=== PATIENT | female | born 1950 | race Caucasian/White ===

== ENCOUNTER → 2020-09-09 | Outpatient (CLI) | payer MEDICARE ==
[~2020-09-09] MED LIST: DIATR MEGLU/DIATRIZOATE SODIUM 30 ML BOTTLE ONE; IOHEXOL-350 75 ML VIAL IV ONE
[2020-09-09 15:52] LABS: BASOPHILS % (AUTO) 0.4 % (0.0-5.0); EOSINOPHILS % (AUTO) 1.1 % (0.0-8.0); LYMPHOCYTES % (AUTO) 12.6 % (21.0-51.0); MEAN CORPUSCULAR HEMOGLOBIN 31.2 pg (27.0-33.0); MEAN CORPUSCULAR HGB CONC 33.5 g/dL (32.0-36.0); MEAN CORPUSCULAR VOLUME 93.2 fL (79-99); MONOCYTES % (AUTO) 6.5 % (3.0-13.0); PLATELET COUNT (AUTO) 247 K/uL (130-400); RED BLOOD CELL COUNT(AUTO) 3.97 MIL/uL (4.00-5.50); RED CELL DISTRIBUTION WIDTH 11.9 % (11.0-15.5); WHITE BLOOD COUNT (AUTO) 11.8 K/uL (4.8-10.8)
[2020-09-09 16:00] LABS: POTASSIUM 3.5 mmol/L (3.5-5.1)
[2020-09-09 16:04] LABS: ALBUMIN 2.8 g/dL (3.5-5.0); BILIRUBIN,DIRECT 0.1 mg/dL (0.0-0.3); BILIRUBIN,TOTAL 0.5 mg/dL (0.2-1.0); TOTAL PROTEIN, SERUM 7.3 g/dL (6.0-8.3)
== END | disposition home or self-care (01) ==
LOC: RAH 15:17
PROVIDERS: ATTEND Internal Medicine Gastroenterology
DX: N13.2 Hydronephrosis with renal and ureteral calculous obstruction (principal); K80.20 Calculus of gallbladder without cholecystitis without obstruction; K82.8 Other specified diseases of gallbladder; K83.8 Other specified diseases of biliary tract; N28.82 Megaloureter; R50.9 Fever, unspecified; R10.9 Unspecified abdominal pain
CPT/HCPCS: 36415; 74176; 80048; 80076; 85025; Q9963; Q9967

== ENCOUNTER → 2020-09-20 | Outpatient (CLI) | payer MEDICARE | END | disposition home or self-care (01) | LOC: RAH 10:48 | PROVIDERS: ATTEND Urology Pediatric Urology | DX: N13.39 Other hydronephrosis (principal); N28.82 Megaloureter | CPT/HCPCS: 74176 ==